=== PATIENT | male | born 1930 | race Caucasian/White ===

== ENCOUNTER 2018-09-04 01:41 | Outpatient (CLI) | payer MEDICARE, OTHER | END 2018-09-04 01:42 | disposition critical access hospital (66) | LOC: EMS 01:41 | PROVIDERS: ATTEND Surgery | DX: M79.605 Pain in left leg (principal); W19.XXXA Unspecified fall, initial encounter; Y92.89 Other specified places as the place of occurrence of the external cause | CPT/HCPCS: A0425; A0429 ==

== ENCOUNTER 2018-09-07 13:20 | Outpatient (CLI) | payer MEDICARE, OTHER | END 2018-09-07 13:21 | LOC: EMS 13:20 | PROVIDERS: ATTEND Surgery | DX: F03.90 Unspecified dementia, unspecified severity, without behavioral disturbance, psychotic disturbance, mood disturbance, and anxiety (principal) | CPT/HCPCS: A0425; A0428 ==